=== PATIENT | male | born 1970 | race Caucasian/White ===

== ENCOUNTER → 2016-05-20 | Outpatient (CLI) | payer OTHER ==
[~2016-05-20] MED LIST: ACTIGALL300 MG PO; ALEVE220 M1 PO; ANTIPYRINE-BENZ10 ML OT; C-500500 M1 PO; CHOLESTEROL MEDICINE PO; CIPRO500 MG/5 M PO; FLAGYL500 MG PO; FOLBIC RF TABL1 EACH PO; IBUPROFEN 600600 M1 PO; LORTAB 10 MG-3473 ML PO; MOM; MULTIVITAM9 MG/15 M1; PEPTO-BISMOL262 M1; PHENERGAN 25 MG25 M1 PO; SIMVASTATIN20 MG PO; TUMS X-STR300 MG PO; VICODIN 5-5001 EACH PO; VITAMIN B-12500 MCG PO; VITAMINC500 PO; ZOCOR20 MG PO; [UNRECOGNIZED DRUG - CODE] PO
--- NOTE | ~2016-05-20 | S ---
[facility] [address] [place] [address] SURGICAL PATH RPT PROCEDURE Name: BONNIE BURDEN Room #: REG [facility]..#: [id number] Admission: 05/20/16 Date of : 74 Discharge: Report #: [id number] Path Case #: [id number] PATHOLOGY REPORT COLLECTION DATE: 05/20/2016 RECEIVED DATE: 05/20/2016 SUBMITTING PHYS: Dr. Serge Jolley OTHER PHYS: SPECIMEN(S) RECEIVED: A.5 cores, Lt neck mass * * * * * * * * * * * * FINAL DIAGNOSIS: Tissue designated as left neck mass, ultrasound-guided needle core biopsy: - SUSPICIOUS FOR PAPILLARY CARCINOMA. COMMENT: Examination shows papillary architecture, nuclear overlapping, and focal pseudoinclusions present along with areas suspicious for capsular invasion. The capsule (dense fibrous tissue) sampled shows abundant hemosiderin laden macrophages and areas of chronic inflammation along with irregularly shaped epithelial islands. Few cores show mixed macro- and microfollicular architecture along with chronic lymphocytic thyroiditis which may simply be due to sampling. Please note, sample represents a minute portion of a larger lesion and may not be junior sales representative. The current sample shows abundant variations from mixed macro- and microfollicular benign thyroid tissue to fibrous capsule associated with skeletal muscle and areas highly suspicious for malignancy. Clinical correlation is suggested. The concurrent cytology ([id number]) showed similar findings. Please see separate report for details. Co-review: Dr. Jarad Chavez. (IUV:csd; d/t: 05/21/2016) PATHOLOGIST: Anne Lynn M.D. REPORT ELECTRONICALLY SIGNED BY: Anne Lynn M.D. DATE/TIME: 05/21/2016 16:47 * * * * * * * * * * * * GROSS PATHOLOGY: The specimen is received in formalin, labeled "Bonnie Burden jeni bx neck" and additionally labeled "left neck mass" on the requisition. Received is a 1.8 x 0.4 x 0.2 cm aggregate of blood-tinged, norris, and rubbery soft tissue fragments. The specimen is entirely submitted in [address] [place] [address] SURGICAL PATH RPT PROCEDURE Name: TIAGOBONNIE Room #: REG CLTenisha Givens#: [id number] Admission: 05/20/16 Date of : 74 Discharge: Report #: [id number] Path Case #: [id number] cassette A1. (TTL; 05/20/2016) CLINICAL HISTORY: Neck mass/cyst INITIAL CPT CODE(S): A; 00871 Professional services performed by [facility] at [facility] [address] [place] [address] Technical services performed by [facility] at [address] [place] [address], [facility] [address] [address]. [facility] [address] [address] PHONE: [phone] DIRECTOR: Cam W. Collins, M.D. * * * END OF REPORT * * *
--- NOTE | ~2016-05-20 | CNG ---
[facility] [place] [address] [place] [address] CYTO-NONGYN REPORT PROCEDURE Name: BONNIE BURDEN Room #: REG [facility] Ziyad.Nils.#: [id number] Admission: 05/20/16 Date of : 74 Discharge: Report #: [id number] Path Case #: [id number] CYTOPATHOLOGY REPORT COLLECTION DATE: 05/20/2016 RECEIVED DATE: 05/20/2016 SUBMITTING PHYS: Dr. Serge Jolley OTHER PHYS: CLINICAL HISTORY: Neck mass/cyst. SPECIMEN(S) RECEIVED: A.Needle aspiration, Neck mass/cyst * * * * * * * * * * * * FINAL DIAGNOSIS: A. Tissue designated as neck mass/cyst, needle aspiration: SUSPICIOUS FOR MALIGNANCY; ATYPICAL CELLS WITH NUCLEAR CLEARING AND RARE INCLUSIONS. COMMENT: The aspirate findings are suspicious for a papillary thyroid carcinoma. The cytology material is hypocellular due to the fact that the specimen represents "cyst fluid". Please note material aspirated may not be digital sales representative. Correlate clinically and follow-up as indicated. The cyst material is saved in media for DNA analysis. It will be sent if requested. A message was sent to Dr. Jolley. The concurrent biopsy tissue [id number] showed findings suspicious for a papillary thyroid carcinoma. Please refer to a separate report for details. (IUV; 05/21/16) PATHOLOGIST: Anne Lynn M.D. REPORT ELECTRONICALLY SIGNED BY: Anne Lynn M.D. DATE/TIME: 05/21/2016 16:19 * * * * * * * * * * * * GROSS PATHOLOGY: A. Needle aspiration, Neck mass/cyst: The specimen is labeled "Bonnie Burden". Forty-five mL of cloudy brown fluid unfixed from the needle rinse is submitted and One ThinPrep slide and a cell block were prepared from this material. (clt 05.20.2016) INDUSTRIAL RELATIONS OFFICER(S): DAMARIS Bowers(ASCP)IAC INITIAL CPT CODE(S): A; 94931, [address] [address] CYTO-NONGYN REPORT PROCEDURE Name: BONNIE BURDEN Room #: REG [facility] Hamzah.#: [id number] Admission: 05/20/16 Date of : 74 Discharge: Report #: [id number] Path Case #: [id number] Professional services performed by [facility] at [address] , [place] [address] Technical services performed by [facility] at [address] [place] [address], [address], [place] [address]. PROCEDURE REPORT (Order Date: 05/25/2016 00:00) INTERPRETATION: The slides were marked for testing, and sent at the request of Dr. Serge Jolley. ThyraMir testing was performed by [employer] on the FNA. Please see SCANNED IMAGES under LABORATORY for separate report of results. (IUV:krystal; d/t: 06/17/2016) COMMENT: PATHOLOGIST: Anne Lynn M.D. REPORT ELECTRONICALLY SIGNED BY: Anne Lynn M.D. DATE/TIME: 06/17/2016 10:56 [facility] [address] [facility], [address] [place] [address] PHONE: [phone] DIRECTOR: Cam Guadalupe M.D. * * * END OF REPORT * * *
== END | disposition home or self-care (01) ==
LOC: ULTRA 08:46
DX: E04.1 Nontoxic single thyroid nodule (principal)

== ENCOUNTER 2016-07-27 05:17 | Day surgery (SDC) | payer OTHER ==
[~2016-07-27] VITALS: Ht 188 cm; Wt 126.6 kg
--- NOTE | ~2016-07-27 | O ---
[facility] [place] [address] [place] [address] OPERATIVE REPORT Name: BONNIE ORDOÑEZ Room #: 544-P [facility]#: [id number] Admission: 07/27/16 Attend Phys: Serge Jolley MD Discharge: Date of : 74 Report #: [id number] THIS REPORT FOR: //name// CC: FAM unknown Serge Jolley DATE OF SERVICE: 07/27/2016 PREOPERATIVE DIAGNOSIS: Thyroid mass. POSTOPERATIVE DIAGNOSIS: Large thyroid cyst. PROCEDURE: Thyroid isthmusectomy. SURGEON: Serge Jolley MD. SERVICE COUNSELOR: All Stiles MD, his presence was necessitated by need for adequate exposure and identification of important vital structures. ANESTHESIA: General endotracheal with a NIMS tube. FINDINGS: Large 6 cm fluid filled cyst was noted just deep to the strap muscles, anterior to the thyroid isthmus and the thyroid lobes. It appeared to be stalked off of the left side of the thyroid isthmus. TECHNIQUE: After obtaining consent, he was brought to the operating suite, appropriate time out was performed. General oral endotracheal anesthesia was obtained with a NIMS endotracheal tube. The appropriate ground and probe leads were then selected and appropriate thresholds were selected. It was found to be in working order at the beginning and end of the case. The next prepped and draped in usual sterile fashion, 6 mL of 1% Xylocaine 1:100,000 epinephrine was injected along the anticipated incision line about 6 cm in length due to the large size of the cyst. After appropriate prepping and draping of the patient, incision was made horizontally over the mass through skin subcutaneous tissue and fat through platysmus. Superior and inferior subplatysmal places were elevated gently. The mass was noted to split strap muscles and the midline raphae was identified and using a combination of a blunt dissection and the use of either bipolar cautery or the focus handpiece, we then divided the strap muscles in the medial to lateral fashion off the mass performing this mostly on the right side first to gain exposure and adequate depth down to the level of the trachea and then on the left side. In the midline, we continued our dissection down to trachea to where we could identify the trachea. At that point was noted that most of the mass was actually to the left of midline. We were then able to develop a plane along the trachea and by doing so rolling mass to the left, able to divide it off the trachea and the right thyroid lobe without difficulty. There was no adequate attachment to the right thyroid lobe. [address] [address] OPERATIVE REPORT Name: BONNIE ORDOÑEZ Room #: 544-P REG [facility]#: [id number] Admission: 07/27/16 Attend Phys: Serge Jolley MD Discharge: Date of : 74 Report #: [id number] At that point, we noted there was attachment inferiorly to the isthmus and we divided the isthmus in midline with the focus handpiece including the specimen, was then able to return more to the patient's left side. We were able to remove it from the surrounding strap muscles staying superior to the thyroid lobe and again was able to divide it off the isthmus on the left side. This essentially left both the right and the left lobes separate from each other, having taken the portion of the isthmus in midline. The specimen was delivered in toto. At that point, hemostasis was obtained with use of bipolar cautery, the focus handpiece or Bovie. Upon maintaining adequate hemostasis, the wound was then thoroughly irrigated with saline. Wound was inspected. Positive pressure ventilation was applied and no bleeding was noted. A large piece of Surgicel was placed over the area where it was removed from the surrounding strap muscles. Through separate stab incision, a 10-Japanese LUMA drain was placed and secured with a single suture through the skin. Strap muscles were then reapproximated in midline with 3-0 chromic suture followed by reapproximating the platysmal layer in a similar fashion. Skin was closed with a running 4-0 black subcuticular nylon suture. Mastisol, Steri-Strips and dressing were applied. He was then allowed to awaken from anesthesia, went to recovery room in stable condition. ESTIMATED BLOOD LOSS: Approximately 20 mL. <ELECTRONICALLY SIGNED> By: Serge Jolley MD 07/28/16 0812 1621 170 Serge Jolley MD /nt
--- NOTE | ~2016-07-27 | S ---
[facility] [address] [place] [address] SURGICAL PATH RPT PROCEDURE Name: BONNIE BURDEN Room #: DEP [facility] M.R.#: [id number] Admission: 07/27/16 Date of : 74 Discharge: 07/28/16 Report #: [id number] Path Case #: [id number] PATHOLOGY REPORT COLLECTION DATE: 07/27/2016 RECEIVED DATE: 07/28/2016 SUBMITTING PHYS: Dr. Serge Jolley OTHER PHYS: Dr. All Stiles SPECIMEN(S) RECEIVED: A.Midline thyroid mass * * * * * * * * * * * * FINAL DIAGNOSIS: "Midline thyroid mass," thryoid isthmusectomy: - PAPILLARY CARCINOMA, MEASURING 5.7 CM GROSSLY INCLUDING CYST AND 2.0 CM SOLID COMPONENT ON THE SLIDE, WITH FOCAL EXTRATHYROIDAL EXTENSION INTO THE PERITHYROIDAL ADIPOSE TISSUE; SURGICAL MARGINS APPEAR FREE OF TUMOR. (SEE COMMENT) - LYMPH NODE, PARTIALLY SAMPLED PERITHYROIDAL, WITH METASTATIC PAPILARY CARCINOMA. (05/02 NODE) SYNOPTIC CANCER STAGING REPORT Specimen Site: Thyroid gland structure Primary Tumor Site: Thyroid gland structure SPECIMEN Procedure: Partial excision (anything less than a lobectomy, including substernal excision) -Other: isthmusectomy Lymph Node Sampling: Other: incidental partially sampled perithyroidal TUMOR Histologic Type: Papillary carcinoma -Common Significant Variants: --Classical (usual, conventional) --Follicular variant, infiltrative Tumor Size: Greatest dimension (cm): 5.7 -Additional Dimension (cm): 2.0 Tumor Laterality: Isthmus Tumor Focality: Unifocal Tumor Extent Extrathyroidal Extension: Present -Extent: --Minimal Accessory Tumor Findings Angioinvasion (vascular invasion): Not identified Lymphatic Invasion: Cannot be determined: indefinite [facility] [address] [place] [address] SURGICAL PATH RPT PROCEDURE Name: BONNIE BURDEN Room #: [facility]..#: [id number] Admission: 07/27/16 Date of : 74 Discharge: 07/28/16 Report #: [id number] Path Case #: [id number] MARGINS Margins: Margins uninvolved by carcinoma -Distance of Invasive Carcinoma to Closest Margin: --Specify (mm): 0.5 LYMPH NODES Regional Lymph Nodes: -Number of Lymph Nodes Examined: --Specify number: 1 -Lymph Node Involvement: ---Number of Lymph Nodes Involved: ----Specify number: 1 ---Size of Largest Tumor Deposit: ----At least (mm): 3 ---Extranodal Extension: ----Not identified STAGE (PTNM) Primary Tumor (pT): pT3: Tumor more than 4 cm limited to thyroid or any tumor with minimal extrathyroid extension (e.g., extension to sternothyroid muscle or perithyroidal soft tissues) Regional Lymph Nodes (pN)#: pN1a: Metastases to Level (pretracheal, paratracheal and prelaryngeal / Delphian, perithyroidal) lymph nodes COMMENT Tumor measures 5.7 cm grossly including cyst and solid component measures 2.0 cm on the slide. COMMENT: Sections show fragments of thyroid with a large thyroid cyst. Adjacent thyroid tissue shows invasive thyroid papillary carcinoma with focal extension into the perithyroidal adipose tissue. Benign/uninvolved skeletal muscle is noted. A partially sampled perithyroidal lymph node shows involvement by papillary carcinoma. Lymphvascular space invasion is indefinite. The inked surgical margins are free of involvement by tumor. The patient has a history of "suspicious for malignancy; atypical cells with nuclear clearing and rare inclusions" from a previous fine needle aspiration ([id number]) and "suspicious for papillary carcinoma" from a left neck mass needle core biopsy ([id number]). Veterinary Technician Assistant slides of the current case are co-reviewed with Dr. Anne Lynn. The case is discussed with Dr. Serge Jolley on 07/29/16 at 5:00 PM. (CLW:; d/t: 07/29/16) PATHOLOGIST: Sherin Jose M.D. REPORT ELECTRONICALLY SIGNED BY: Sherin Jose M.D. DATE/TIME: 07/29/2016 17:07 * * * * * * * * * * * * [facility] [address] [place] [address] SURGICAL PATH RPT PROCEDURE Name: BONNIE BURDEN [id number] Admission: 07/27/16 Date of : 74 Discharge: 07/28/16 Report #: [id number] Path Case #: [id number] GROSS PATHOLOGY: The specimen is received in formalin labeled "Bonnie Burden midline thyroid mass". Received is a 71 g segment of pale norris to pink-lopez fluid-filled capsular tissue with a slight amount of attached light norris possible thyroid parenchyma measuring 5.9 x 5.1 x 4.6 cm in greatest dimensions. The surgical margin is inked. Sectioning reveals a large unilocular cystic structure measuring 5.7 x 4.7 x 4.3 cm in greatest dimensions filled with blood-tinged fluid. The cyst wall linings are pale norris and smooth in appearance. There is a slight amount of attached pink-norris soft tissue measuring 1.9 x 1.8 x 1.1 cm. Normal thyroid parenchyma is not grossly distinct. The specimen is submitted representatively in cassettes A1 through A5. (CAA; 07/28/2016) CLINICAL HISTORY: Thyroid cyst INITIAL CPT CODE(S): A; 33135 Professional services performed by [facility] at [place] [address], [place] [address] Technical services performed by [facility] at [address] [place] [address], [address], [place] [address]. [facility] [address] [address] PHONE: [phone] DIRECTOR: Cam Guadalupe M.D. * * * END OF REPORT * * *
--- NOTE | ~2016-07-27 | H ---
[facility] [address] [place] [address] HISTORY AND PHYSICAL Name: BONNIE ORDOÑEZ Room #: 150-1 [facility]..#: [id number] Admission: 07/27/16 Attend Phys: Serge Jolley MD Discharge: Date of : 74 Report #: [id number] THIS REPORT FOR: //name// CC: FAM unknown Serge Jolley DATE OF SERVICE: 07/27/2016 CHIEF COMPLAINT: Thyroid mass. HISTORY OF PRESENT ILLNESS: The patient is a 46-year-old gentleman originally presented in May of this year with a midline mass that have been present for several months nonpainful in nature and enlarged within the last several months prior to presentation. An ultrasound suggested this is a cystic mass, although original diagnosis thought this may be thyroglossal duct cyst. A CT scan of his neck was obtained and based on this, I recommended proceeding with an FNA. The FNA did demonstrated some atypical cells and was sent it off further for genetic testing; however, the genetic testing demonstrated this to a high probability being a benign lesion. It should be noted that upon removal of the fluid from the mass, the size of the mass essentially dissipated however, did recur somewhat quickly after aspiration was performed. I discussed with the patient by phone with the benign appearing FNA the option of either leaving the cyst in place and having aspirated as needed or that he could proceed forward to have surgical intervention done to remove the ensuing cyst and the mass. Surgical risks were discussed with him, which included but not limited to anesthesia, bleeding, infection, scarring, seroma hematoma formation, temporary or permanent injury to the vocal cord nerve. There were possibility of needing a tracheotomy. Temporary permanent hypercholesterolemia, need for further surgical intervention. All questions were answered as well as discussion of the option of just aspirating this on an as needed basis. Plan at this point will be for removal of thyroid mass under anesthesia. ALLERGIES TO MEDICATION: INCLUDE PENICILLIN. MEDICATIONS ON ADMISSION: Simvastatin 20 mg once a day, Ursodiol 300 mg capsule once a day. PAST MEDICAL AND SURGICAL HISTORY: Notable for previous gallbladder surgery. MEDICAL HISTORY: Notable for hypercholesterolemia. FAMILY HISTORY: Notable for cancer, diabetes, stroke, and heart disease. REVIEW OF SYSTEMS: Negative for any GI, , cardiovascular or pulmonary issues, should be noted the patient has limited site. [address] [address] HISTORY AND PHYSICAL Name: BONNIE ORDOÑEZ Room #: 150-1 [facility]..#: [id number] Admission: 07/27/16 Attend Phys: Serge Jolley MD Discharge: Date of : 74 Report #: [id number] PHYSICAL EXAMINATION: VITAL SIGNS: Height of 62 inches, weight of 280 pounds, blood pressure 119/84. HEENT: Reveals a rather prominent gentleman who appears his stated age. He sites were restricted. Ear exam is unremarkable has is the nares and oral cavity and oropharynx. NECK: Reveals a large 5 to 6 cm midline mass just that or slightly below both the thyroid prominent, below the hyoid bone. There is no lymphadenopathy noted. CHEST: Clear. CARDIOVASCULAR: Regular rate, regular rhythm. ASSESSMENT: History of thyroid cysts with small component related to the thyroid itself. Plan will be for removal of cyst and the surrounding thyroid tissue, which may or may not necessitate a total thyroidectomy. <ELECTRONICALLY SIGNED> By: Serge Jolley MD 07/27/16 1429 0758 [id number] Serge Jolley MD /nt
[2016-07-27 14:01] VITALS: BP 121/85
[2016-07-27 16:50] VITALS: BP 134/79
[2016-07-27 17:00] VITALS: BP 130/80
[2016-07-27 17:30] VITALS: BP 131/61
[2016-07-27 18:00] VITALS: BP 121/69
[2016-07-27 20:00] VITALS: BP 123/70
[2016-07-28] VITALS: BP 131/59
[2016-07-28 04:00] VITALS: BP 119/61
[2016-07-28 07:24] VITALS: BP 113/70
[2016-07-28 11:56] VITALS: BP 113/70
[2016-07-28 12:11] VITALS: BP 113/70
== END 2016-07-28 13:37 | disposition still patient (30) ==
LOC: 5S 05:17 → OR 05:17 → TBA 05:17 → OR 10:14 → 5S 17:27 → OR 07-28 13:37
DX: C73 Malignant neoplasm of thyroid gland (principal); E78.00 Pure hypercholesterolemia, unspecified; G47.30 Sleep apnea, unspecified; Z98.890 Other specified postprocedural states
CPT/HCPCS: 50010; 50101; 50331; 50386; 50417; 50455; 50942; 52220; 56524; 56526; 56528; 56638; 56805; 57006; 62110; 62900; 65006; 70005

== ENCOUNTER 2016-08-20 05:51 | Inpatient (IN) | payer OTHER ==
[~2016-08-20] VITALS: Ht 188 cm; Wt 122.5 kg
--- NOTE | ~2016-08-20 | S ---
[facility] [place] [address] [place] [address] SURGICAL PATH RPT PROCEDURE Name: BONNIE BURDEN Room #: 430-P [facility] M.R.#: [id number] Admission: 08/20/16 Date of : 74 Discharge: 08/21/16 Report #: [id number] Path Case #: [id number] PATHOLOGY REPORT COLLECTION DATE: 08/20/2016 RECEIVED DATE: 08/20/2016 SUBMITTING PHYS: Dr. Serge Jolley OTHER PHYS: Dr. All Stiles SPECIMEN(S) RECEIVED: A.Right lobe B.Left lobe * * * * * * * * * * * * FINAL DIAGNOSIS: A. Thyroid, right thyroid lobe, completion thyroidectomy: - Mild chronic lymphocytic thyroiditis along with nodular hyperplasia as well as dominant nodule formation. B. Thyroid, left thyroid lobe, completion thyroidectomy: - PAPILLARY CARCINOMA, CLASSICAL VARIANT, MEASURING 0.6 CM IN GREATEST DIMENSION (MICROCARCINOMA). - Margins of resection widely free of malignancy. B. Tissue designated as "left thyroid lobe": - 4 mm parathyroid gland showing no significant diagnostic abnormalities. SYNOPTIC CANCER STAGING REPORT Specimen Site: Thyroid gland structure Primary Tumor Site: Thyroid gland structure CLINICAL Clinical History: Other: isthmus resection with Papillary carcinoma SPECIMEN Procedure: Other: Completion thyroidectomy TUMOR Histologic Type: Papillary carcinoma -Common Significant Variants: --Classical (usual, conventional) Tumor Size: Greatest dimension (cm): 0.6 Tumor Laterality: Left lobe Isthmus Tumor Focality: Multifocal Tumor Extent Extrathyroidal Extension: Not identified Accessory Tumor Findings Angioinvasion (vascular invasion): Not identified Lymphatic Invasion: Not identified [facility] [address] [place] [address] SURGICAL PATH RPT PROCEDURE Name: BONNIE BURDEN Room #: 430-P [facility] IN M.R.#: [id number] Admission: 08/20/16 Date of : 74 Discharge: 08/21/16 Report #: [id number] Path Case #: [id number] Perineural Invasion: Not identified MARGINS Margins: Margins uninvolved by carcinoma -Distance of Invasive Carcinoma to Closest Margin: --Specify (mm): 3 LYMPH NODES Regional Lymph Nodes: No nodes submitted or found STAGE (PTNM) TNM Descriptors: m (multiple primary tumors) Primary Tumor (pT): pT1a: Tumor 1 cm or less in greatest dimension limited to the thyroid. Regional Lymph Nodes (pN)#: pNX: Regional lymph nodes cannot be assessed ADDITIONAL FINDINGS Additional Pathologic Findings: Thyroiditis (specify type): mild chronic lymphocytic thyroiditis Parathyroid gland(s) -Present --Number of Parathyroid Glands: ---1 --Location of Parathyroid Gland(s): ---Other: left side --Parathyroid Gland Features: ---Within normal limits COMMENT: The most recent isthmus lobectomy specimen [id number] showed a papillary thyroid carcinoma staged at pT3 pN1 pMx (please see separate report). The current completion thyroidectomy shows a 6 mm papillary thyroid carcinoma of classical type. Therefore the tumor is separately staged as a multifocal tumor and as a pT1a. (IUV:csd; d/t: 08/24/2016) PATHOLOGIST: Anne Lynn M.D. REPORT ELECTRONICALLY SIGNED BY: Anne Lynn M.D. DATE/TIME: 08/24/2016 15:25 * * * * * * * * * * * * GROSS PATHOLOGY: A. The specimen is received in formalin labeled "Bonnie Burden, right lobe". Received is a 13 g unoriented thyroid lobe measuring 4.7 x 2.8 x 2.2 cm in greatest dimensions. The capsule is slightly disrupted and displays a moderate amount of overlying adhesions. The specimen is inked black. Sectioning reveals multiple pale norris, partially encapsulated nodules ranging in size from 0.5 to 1.9 cm in maximum dimensions, some of which grossly abuts the inked margin. There is a slight amount of normal red-brown thyroid parenchyma present. Alternating sections are submitted in cassettes [place]1 [place] [address] SURGICAL PATH RPT PROCEDURE Name: BONNIE BURDEN Radha Room #: 430-P [facility] M.R.#: [id number] Admission: 08/20/16 Date of : 74 Discharge: 08/21/16 Report #: [id number] Path Case #: [id number] A7. B. The specimen is received in formalin labeled "Bonnie Burden, left lobe". Received is a 9 g unoriented thyroid lobe measuring 4.7 x 2.6 x 1.9 cm in greatest dimensions. The capsule is intact displaying a moderate amount of overlying adhesions. The specimen is inked blue. Sectioning reveals multiple pale norris to white-norris, unencapsulated nodules ranging in size from 0.1 to 0.5 cm in maximum dimensions. The remainder the specimen is comprised of normal red-brown thyroid parenchyma. Alternating sections are submitted in cassettes B1 through B6. (CAA; 08/23/2016) CLINICAL HISTORY: Thyroid nodule INITIAL CPT CODE(S): A; 97465 B; 14516, 69001 Professional services performed by [employer] at [facility] [address], [place] [address] Technical services performed by [employer] at [address] [place] [address], [address], [place] [address]. [facility] [address] [place] [address] PHONE: [phone] DIRECTOR: Cam Guadalupe M.D. * * * END OF REPORT * * *
--- NOTE | ~2016-08-20 | O ---
[facility] [place] [address] OPERATIVE REPORT Name: BONNIE ORDOÑEZ Room #: 430-P [facility] IN M.R.#: [id number] Admission: 08/20/16 Attend Phys: Serge Jolley MD Discharge: Date of : 74 Report #: [id number] THIS REPORT FOR: //name// CC: FAM unknown Serge Jolley DATE OF SERVICE: 08/20/2016 PREOPERATIVE DIAGNOSIS: Thyroid cancer. POSTOPERATIVE DIAGNOSIS: Thyroid cancer. PROCEDURE: Thyroidectomy. SURGEON: Serge Jolley MD CERTIFIED ORTHOTIST/PEDORTHIST: All Stiles MD. His assistance was integral and providing assistance in identifying and preserving vital structures as well as exposure during the case. ANESTHESIA: General oral endotracheal and NIMs tube. FINDINGS: Expected scarification was noted in the superficial portions of the neck. Both the right and left thyroid lobes were without any palpable masses and appeared to be normal in size. No visible lymphadenopathy was noted. There was a substantial amount of scarification right over the trachea in the midline as expected from previous surgery. Parathyroids were intact superiorly bilaterally at the end of the case. Both recurrent laryngeal nerves were identified and preserved during the case. TECHNIQUE: After obtaining consent, he was brought to the operating suite, appropriate timeout was performed. General oral endotracheal intubation was obtained with use of a NIMs tube. ____ just maintained throughout the case. The NIMs tube leads were applied to the ground and probe were applied to the chest. Appropriate intervals were selected for stimulation and the NIMs tube was found to be functioning. The neck was prepped and draped in the usual sterile fashion. A 5 mL 1% Xylocaine and 1:100,000 epinephrine was injected along the previous incision line. Reexcision through the original incision line was performed, carried down through the skin and subcutaneous tissue and the platysma. Dense scarification was encountered with hemostasis maintained with the use of bipolar or Bovie cautery. After going through the platysma layer, identified the midline by palpation, was able to raise superior and inferior subplatysmal planes. This essentially scarred down from previous dissection from his original case. This exposed a rather scarified appearance to the musculature over the trachea. With [facility] [address] [place] [address] OPERATIVE REPORT Name: BONNIE ORDOÑEZ Room #: 430-P [facility] IN M.R.#: [id number] Admission: 08/20/16 Attend Phys: Serge Jolley MD Discharge: Date of : 74 Report #: [id number] some technical dissection, I was able to identify the midline and divide muscles in midline until I was able to identify the trachea. I was then able to with, fine dissection, lift the strap muscles off the right lobe and identify the lateral border. I was then able to clean out from the medial and lateral aspect the investing fascia and strap muscles from the right thyroid lobe until we could see the inferior and superior poles in lateral edge. Continued to dissect laterally rolling the gland medially with the use of stay sutures to help pull the thyroid lobe up into view. Inferior pole vessels were taken down with the use of either bipolar cautery or the use of a focus handpiece. Superior vessels were then identified and divided with the same handpiece. Medium sized clips were used on the superior pole vessels. This allowed us to roll it even more medially. I was then able to identify and preserve the superior parathyroid gland on this side. At that point, we identified the recurrent laryngeal nerve and followed it up towards its insertion to the cricoid space. This was preserved into the gland, continued to be rolled more medially exposing various ligament and taking this down off the trachea delivering the entire right lobe as one specimen. It should be noted that we did not identify or see the inferior parathyroid gland on this side. Inspection of the right thyroid lobe wound showed an intact recurrent laryngeal nerve with an intact and viable superior parathyroid. Attention was then turned to the left side of the neck where again with some technical dissection I was able to identify the plane between the straps muscles, which had scarred against the medial aspect thyroid lobe on the left side, actually turned laterally and found a fresh plane of dissection on the lateral edge of the right lobe, was able to dissect this down and roll the gland more medially. Returning to the inferior pole area, we took the inferior pole vessels down and I was finally able to identify the recurrent laryngeal nerve near the tracheoesophageal groove. We followed this up to the cricothyroid space as well as inferiorly, then took the superior pole vessels down with the focus handpiece. Continued rolling in the gland medially keeping the recurrent laryngeal nerve in view the entire time and avoiding it during dissection, taking Solano's ligament down with bipolar cautery and the use of the focus handpiece. This specimen was also delivered in toto and on this side, we were able to identify and preserve the superior parathyroid, but again did not identify the inferior parathyroid. At the end of the case, hemostasis was maintained with the use of either bipolar cautery or small clips avoiding stimulation and cauterization near the recurrent laryngeal nerves on both sides. Copious irrigation was used to clean the wounds on both sides. There was no residual blood left in the field. Positive pressure ventilation was applied by Anesthesia and all the surgical sites were inspected and found to be hemostatically dry. A single piece of 2 x 3 Surgicel was cut in half and placed over the recurrent laryngeal nerves bilaterally. Through a separate stab incision, a 10 [place] Mg drain was placed and secured with a 2-0 silk suture. The strap muscles were then reapproximated as best they could be with either horizontal or simple interrupted 3-0 chromic. Closed the platysmal layer in a [facility] [address] [place] [address] OPERATIVE REPORT Name: BONNIE ORDOÑEZ Room #: 430-P [facility] IN [facility]#: [id number] Admission: 08/20/16 Attend Phys: Serge Jolley MD Discharge: Date of : 74 Report #: [id number] similar fashion. Skin was closed with a running 4-0 black nylon followed by Mastisol, Steri-Strips, Telfa and tape. He was then returned to anesthesia, awakened and taken to recovery room in stable condition. ESTIMATED BLOOD LOSS: 75 mL. <ELECTRONICALLY SIGNED> By: Serge Jolley MD 08/21/16 0816 1043 1543 Serge Jolley MD /nt
--- NOTE | ~2016-08-20 | H ---
[facility] [place] [address] [place] [address] HISTORY AND PHYSICAL Name: BONNIE ORDOÑEZ Room #: 430-P [facility] IN M.R.#: [id number] Admission: 08/20/16 Attend Phys: Serge Jolley MD Discharge: 08/21/16 Date of : 74 Report #: [id number] THIS REPORT FOR: //name// For History and Physical, please see office documentation/handwritten note in the patient's medical record. By: 0000 1131 Serge Jolley MD /
[~2016-08-20 05:51] MED LIST changes: +NORCO 5-325 TA1 EACH PO
[2016-08-20 07:45] VITALS: BP 124/71
[2016-08-20 13:18] VITALS: BP 132/83
[2016-08-20 15:14] VITALS: BP 137/80
[2016-08-20 20:00] VITALS: BP 121/78
[2016-08-21 04:00] VITALS: BP 127/85
[2016-08-21 08:32] VITALS: BP 116/76
[2016-08-21 09:41] VITALS: BP 127/85
== END 2016-08-21 14:45 | disposition home health service (06) | DRG 627 ==
LOC: OR 05:51 → TBA 05:51 → OR 12:51 → 4E 12:51 → OR 15:36 → 4E 08-21 14:45
PROC: 0GBH0ZZ Excision of Right Thyroid Gland Lobe, Open Approach (ICD-10-PCS; principal; 2016-08-20)
PROC: 0GBG0ZZ Excision of Left Thyroid Gland Lobe, Open Approach (ICD-10-PCS; principal; 2016-08-20)
DX: C73 Malignant neoplasm of thyroid gland (principal); Z88.0 Allergy status to penicillin
CPT/HCPCS: 10783; 50010; 50101; 50331; 50386; 50417; 50942; 52220; 52225; 56524; 56526; 56528; 56760; 57006; 62110; 62900; 64031; 65006; 70005

== ENCOUNTER 2016-09-24 05:35 | Outpatient (CLI) | payer OTHER ==
[~2016-09-24] VITALS: Ht 188 cm; Wt 122.0 kg
--- NOTE | ~2016-09-24 | P ---
[facility] [place] [address] [place] [address] PROCEDURE REPORT Name: BONNIE ORDOÑEZ Room #: 150-3 [facility].#: [id number] Admission: 09/24/16 Attend Phys: Bonnie Camargo MD Discharge: Date of : 74 Report #: [id number] THIS REPORT FOR: //name// CC: FAM unknown Janet Mendoza MD OUTPATIENT ENDOSCOPIC RETROGRADE CHOLANGIOPANCREATOGRAPHY REPORT BRIEF HISTORY: The patient is a 46-year-old male well known to me who has choledocholithiasis. He has had several ERCPs with the last one in November of last year. At that time, we crushed the stones and removed the stones and stone fragments. Part of the difficulty is a very large and dilated common bile duct, and we had concerns that there were remaining stones in the duct, and a stent was placed. The patient now presenting for followup ERCP and stent removal. PREOPERATIVE DIAGNOSIS: Choledocholithiasis. POSTOPERATIVE DIAGNOSES: 1. Choledocholithiasis. 2. Markedly dilated extrahepatic biliary tree. MEDICATIONS: Intubation general anesthesia. SPECIMEN: Multiple stones removed from duct and left in duodenum. ESTIMATED BLOOD LOSS: None. PROCEDURE: ERCP with stent removal and stone removal. COMPLICATIONS: None. FINDINGS: Prior to the procedure, the procedure of ERCP and stent removal, the stone extraction was discussed with the patient and his mother. He indicates he understands and desire that we proceed. DESCRIPTION OF PROCEDURE: The patient was taken to the invasive radiology suite and was placed under anesthesia and intubated. He was subsequently placed in the prone position. Subsequently, a Fuji side-viewing endoscope was inserted in the cervical esophagus, advanced to the esophagus into the stomach. It is noted the patient has had a previous gastric sleeve surgery. The pylorus is unremarkable. The scope was advanced across the pylorus and duodenum. We were then able to visualize the papilla, and he has had a previous sphincterotomy, and a pigtail catheter was exiting from the papilla. This was grasped with a polypectomy snare and pulled out. This stent was inspected, and the entire stent was removed from the biliary tree. We reinserted the scope and directly [facility] [address] [place] [address] PROCEDURE REPORT Name: BONNIE ORDOÑEZ Room #: 150-3 [facility]#: [id number] Admission: 09/24/16 Attend Phys: Bonnie Camargo MD Discharge: Date of : 74 Report #: [id number] cannulated the common bile duct. Injection of contrast revealed once again a dilated duct. Due to the dilated duct and even though half-strength contrast was used, it was fairly dense. We were able to see what appeared to be at least 3 filling defects in the distal duct and ranged about 6-8 mm. We then did an exchange and inserted a 2 cm basket into the duct. It was dragged on multiple occasions. On the first pass, several soft friable cholesterol stones came out. Filling defects remain, and with additional passes, 2 cholesterol stones were brought out of the duct. We then dragged the duct multiple times with the basket; no additional filling defects could be identified or stones removed. We then inserted a balloon catheter and dragged the duct with the balloon catheter. We rotated the camera at different angles, no additional filling defects were seen. The duct appeared to be draining well. Obvious filling defects were not seen. The scope was withdrawn. The patient tolerated the procedure well. CONDITION OF THE PATIENT UPON DISCHARGE: Following procedure, the patient was taken to recovery in good position. Instructions to the patient and family at the time of discharge. The biliary tree was cleared of stones. PLAN: We will follow up with liver function studies at about a month or so. He should return to see me on an as-needed basis. By: [id number] Bonnie Camargo MD /nt
[~2016-09-24 05:35] MED LIST changes: +LEVOTHYROXINE 0.1 MG PO
== END 2016-09-24 14:22 | disposition home or self-care (01) ==
LOC: GI 05:35 → TBA 05:35 → GI 11:33
DX: K80.50 Calculus of bile duct without cholangitis or cholecystitis without obstruction (principal); G47.30 Sleep apnea, unspecified; E78.00 Pure hypercholesterolemia, unspecified; Z85.850 Personal history of malignant neoplasm of thyroid; Z98.84 Bariatric surgery status
CPT/HCPCS: 50850; 62110; 62900; 70005

== ENCOUNTER 2017-01-11 23:54 | Emergency (ER) | payer OTHER ==
[~2017-01-11] VITALS: Ht 188 cm; Wt 125.7 kg
== END 2017-01-12 02:18 | disposition home or self-care (01) ==
LOC: ER 23:54
DX: H61.21 Impacted cerumen, right ear (principal); G47.30 Sleep apnea, unspecified; E78.00 Pure hypercholesterolemia, unspecified; Z85.850 Personal history of malignant neoplasm of thyroid; Z90.49 Acquired absence of other specified parts of digestive tract; Z88.0 Allergy status to penicillin

== ENCOUNTER → 2017-07-11 | Outpatient (CLI) | payer OTHER ==
[~2017-07-11] MED LIST changes: +ASPIR 8181 MG PO; +EAR SYSTEM15 ML OTIC; +LEVOTHYROXINE500 MCG; +MACROBID 100 M100 M1 PO; +MACROBID 100 M100 M2 PO; +MIRALAX17 GM PO; +NAPROSYN500 MG PO; +SIMVASTATIN40 MG PO; +SYNTHROID125 MC1 PO; +SYNTHROID150 MCG PO; +TRAMADOL 50 MG50 MG PO; +ULTRAM 50MG TAB50 MG PO; +VITAMIN D350000 UNIT PO
--- NOTE | ~2017-07-11 | 2DMMODE ---
[facility] [place] [address] 2 D/M-MODE ECHOCARDIOGRAM Name: BONNIE ORDOÑEZ Room #: REG [facility]#: [id number] Admission: 07/11/17 Attend Phys: Ney Currie Discharge: Date of : 74 Date of Service: 07/11/17 1302 Report #: [id number] THIS REPORT FOR: //name// APPROVED REPORT Study performed: 07/11/2017 09:07:58 EXAM: Comprehensive 2D, Doppler, and color-flow Echocardiogram Patient Location: Out-Patient Status: routine BSA: 2.51 HR: 67 bpm BP: 123/78 mmHg Rhythm: NSR Other Information Study Quality: Adequate Indications Palpitations 2D Dimensions RVDd: 41.71 mm LVEF(%): 55.46 (>50%) IVSd: 10.76 (7-11mm) LVOT Diam: 21.74 (18-24mm) LVDd: 53.79 mm PWd: 10.35 (7-11mm) Ascending Ao: 33.16 (22-36mm) LVDs: 38.11 (25-40mm) Aortic Root: 36.26 mm Rust's LVEF: 55.46 % Volumes Left Atrial Volume (Systole) Single Plane 4CH: 45.34 mL Single Plane 2CH: 44.60 mL LA ESV Index: 19.00 mL/m2 Aortic Valve AoV Peak Steve.: 1.45 m/s AO Peak Gr.: 8.45 mmHg LVOT Max P.66 mmHg LVOT Max V: 1.19 m/s ELIZA Vmax: 3.04 cm2 Mitral Valve E/A Ratio: 1.5 MV Decel. Time: 181.35 ms [facility] [address] [address] [place] [address] 2 D/M-MODE ECHOCARDIOGRAM Name: TIAGOBONNIE RAMOS Room #: [facility] Tosha#: [id number] Admission: 07/11/17 Attend Phys: Ney Currie Discharge: Date of : 74 Date of Service: 07/11/17 1302 Report #: [id number] E Max Steve.: 0.76 m/s MV A Steve.: 0.51 m/s MV PHT: 52.59 ms IVRT: 72.66 ms Pulmonary Valve PV Peak Steve.: 1.14 m/s PV Peak Gr.: 5.23 mmHg Pulmonary Vein P Vein S: 0.44 m/s P Vein A: 0.27 m/s P Vein D: 0.60 m/s P Vein A Dur.: 96.9 msec P Vein S/D Ratio: 0.73 Tricuspid Valve TR Peak Steve.: 2.06 m/s RAP Estimate: 5.00 mmHg TR Peak Gr.: 17.03 mmHg PA Pressure: 22.00 mmHg Left Ventricle The left ventricle is normal size. There is normal LV segmental wall motion. There is normal left ventricular wall thickness. Left ventricular systolic function is normal. LVEF is 55%. The left ventricular diastolic function is normal. Right Ventricle The right ventricle is normal size. The right ventricular systolic function is normal. Atria The left atrium size is normal. The right atrium size is normal. Aortic Valve The aortic valve is normal in structure. No aortic regurgitation is present. There is no aortic valvular stenosis. Mitral Valve The mitral valve is normal in structure. Trace mitral regurgitation. No evidence of mitral valve stenosis. Tricuspid Valve The tricuspid valve is normal in structure. Trace tricuspid regurgitation. Estimated PAP is 20-25mmHg. Pulmonic Valve The pulmonary valve is normal in structure. There is no pulmonic [address] [address] 2 D/M-MODE ECHOCARDIOGRAM Name: BONNIE ORDOÑEZ Room #: REG CL Juan Manuel#: [id number] Admission: 07/11/17 Attend Phys: [facility] Dis[facility]: Date of : 74 Date of Service: 07/11/17 1302 Report #: [id number] valvular regurgitation. Great Vessels The aortic root is normal in size. The ascending aorta is normal in size. IVC is normal in size and collapses with >50% inspiration Pericardium There is no pericardial effusion. <Conclusion> Left ventricular systolic function is normal. There is normal LV segmental wall motion. LVEF 55%. Normal diastolic function The aortic valve is normal in structure. No aortic regurgitation or stenosis The mitral valve is normal in structure. Trace mitral regurgitation. Trace tricuspid regurgitation. Estimated pulmonary artery pressure of 20-25mmHg. There is no pericardial effusion. <ELECTRONICALLY SIGNED> By: Michael Reyes MD, FACC 07/11/17 1302 130 1302 Michael Reyes MD, FACC /INF
== END ==
LOC: CV 07:10
DX: R00.2 Palpitations (principal); Z88.0 Allergy status to penicillin

== ENCOUNTER 2017-09-13 00:51 | Emergency (ER) | payer OTHER ==
[~2017-09-13] VITALS: Ht 188 cm; Wt 124.7 kg
[~2017-09-13 00:51] MED LIST changes: -ASPIR 8181 MG PO; -EAR SYSTEM15 ML OTIC; -LEVOTHYROXINE500 MCG; -MACROBID 100 M100 M1 PO; -MACROBID 100 M100 M2 PO; -MIRALAX17 GM PO; -NAPROSYN500 MG PO; -SIMVASTATIN40 MG PO; -SYNTHROID125 MC1 PO; -SYNTHROID150 MCG PO; -TRAMADOL 50 MG50 MG PO; -ULTRAM 50MG TAB50 MG PO; -VITAMIN D350000 UNIT PO
[2017-09-13] MEDS ORDERED: IBUPROFEN 600600 M1 PO (01:11)
[2017-09-13] MEDS ORDERED: ULTRAM 50MG TAB50 MG PO (01:11)
[2017-09-13] MEDS ORDERED: EAR SYSTEM15 ML OTIC (01:11)
== END 2017-09-13 01:34 | disposition home or self-care (01) ==
LOC: ER 00:51
DX: M53.3 Sacrococcygeal disorders, not elsewhere classified (principal); H61.22 Impacted cerumen, left ear; Z85.850 Personal history of malignant neoplasm of thyroid; Z90.89 Acquired absence of other organs; Z88.0 Allergy status to penicillin

== ENCOUNTER → 2017-10-19 | Outpatient (CLI) | payer OTHER ==
[~2017-10-19] VITALS: Ht 188 cm; Wt 125.1 kg
[~2017-10-19] MED LIST changes: +EAR SYSTEM15 ML OTIC; +LEVOTHYROXINE500 MCG; +SIMVASTATIN40 MG PO; +SYNTHROID150 MCG PO; +TRAMADOL 50 MG50 MG PO; +ULTRAM 50MG TAB50 MG PO
--- NOTE | ~2017-10-19 | HPC ---
[facility] [address] [place] [address] PAIN MANAGEMENT CONSULTATION Name: BONNIE ORDOÑEZ Room #: REG Tenisha Tosha#: [id number] Admission: 10/19/17 Attend Phys: Tobias Montenegro MD Discharge: Date of : 74 Report #: [id number] THIS REPORT FOR: //name// CC: FAM jenny Montenegro DATE OF SERVICE: 10/19/2017 CHIEF COMPLAINT: Pain in the buttocks area after falling on my tailbone. HISTORY OF PRESENT ILLNESS: The patient is a 47-year-old gentleman who is blind. States that he has been experiencing pain and discomfort in the area of his tailbone. The patient states that he fell about a year and a half ago, he landed on his tailbone. It was about a 2 foot bridge of which he fell. He has been having pain and discomfort, which has been problematic since that time. He notes that the pain bothers him and is quite problematic, impacts activities of daily living. It impacts his ability to sleep and rest. He has not fallen within the last 3 months. He has tried Tylenol, but has not noticed any significant long-term benefit from this. He has been referred to the pain clinic for evaluation and treatment. He does note some time that the pain can be problematic in both of his legs. Describes as a constant, shooting, throbbing pain. Rates it as a 10/10 at this juncture. He has not had surgery for this discomfort. He has not had back surgery. ALLERGIES: PENICILLIN. CURRENT MEDICATIONS: Vitamin B12, 250 mg, simvastatin 20 mg, ursodiol 300, cyanocobalamin ER 1000 mg daily. Medications discontinued in the past include simvastatin 20 mg. 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 PAST SURGICAL HISTORY: Cholecystectomy in 2012, vasectomy in 1997, right rotator cuff tear, cortisone injection in 2011, gastric sleeve, loss 460 pounds, stent placement bile duct for gallstones, thyroid isthmusectomy 07/27/2016, thyroidectomy 08/20/2016. SOCIAL HISTORY: He is disabled. REVIEW OF SYSTEMS: Questionnaire 12-point review indicates generally healthy decreased appetite since gastric sleeve, headaches due to stress, dry skin [address] [address] PAIN MANAGEMENT CONSULTATION Name: BONNIE ORDOÑEZ Room #: REG [facility]#: [id number] Admission: 10/19/17 Attend Phys: Tobias Montenegro MD Discharge: Date of : 74 Report #: [id number] recurrent headaches due to stress, nervousness, and thyroid cancer. LABORATORY DATA: No laboratory values were available at the time of our interview. PAIN CLINIC ASSESSMENT: 1. Osteoarthritis. The patient is not being treated for osteoarthritis. 2. Height 6 feet 2 inches, weight 275 pounds. BMI is 35.4. 3. Vital signs: Blood pressure 110/73, pulse 57, and respiratory rate 14, room air saturation 98%. 4. Pain intensity 10. 5. Fall risk. The patient has not fallen in the last 3 months. He does walk with a cane or with a stick, white stick/red. 6. The patient is not on blood thinner. 7. History of hypertension. The patient is not being treated for hypertension. 8. Opioid therapy greater than 6 weeks. The patient is not on opioid medication. 9. Risk assessment tool 0-3 low for use of opioids. 10. Functional assessment tool 67 indicating significant problems with activities of daily living because of his pain and discomfort. 11. Recreational drug use, never used drugs. 12. Smoking. The patient has never smoked tobacco. 13. Alcohol: The patient denies use of alcoholic beverages. PHYSICAL EXAMINATION: GENERAL: The patient is a well-developed, somewhat obese white male. He is alert and oriented x 3. Affect is appropriate. HEAD, EYES, EARS, NOSE, AND THROAT: Normocephalic, atraumatic. The patient is blind. Hearing within normal limits. Mucous membranes are moist. NECK: Without adenopathy. HEART: Regular rate. ABDOMEN: Protuberant. LUNGS: Generally clear to auscultation without rales or crackles. EXTREMITIES: Upper motor strength is judged to be 5/5 for the major muscle groups with symmetry without neurological deficit, lower extremity judged to be 5/5 muscle strength. MUSCULOSKELETAL: Without significant scoliosis, kyphosis or lordosis. The patient has pain and discomfort to palpation in the area of coccyx. Down at the end of the coccyx pressure in this area reproduces a considerable amount of patient's pain and discomfort. States that he has some pain radiating around the left anterior thigh. No significant pain in the right anterior thigh muscle. The patient has some pain with palpation in the sciatic outflow tract and down the posterior portion of his thigh. Sylvester's sign was negative. Palpation in the coccyx reproduces the patient's pain and discomfort and causes the patient to phonate secondary to the discomfort. [facility] [address] [place] [address] PAIN MANAGEMENT CONSULTATION Name: BONNIE ORDOÑEZ Room #: REG [facility]#: [id number] Admission: 10/19/17 Attend Phys: Tobias Montenegro MD Discharge: Date of : 74 Report #: [id number] IMPRESSION: 1. Lower back and tailbone pain status post fall about a year and a half ago. 2. Diabetes mellitus. 3. Obesity -- status post gastric sleeve. 4. History of sleep apnea, does not use a machine. 5. Hypercholesterolemia. 6. History of thyroid cancer. 7. History of right rotator cuff tear. RECOMMENDATIONS: We discussed treatment options with the patient. Risks and benefits of a caudal injection in the area of the coccyx was discussed. Possible complications which could include infection, worsening of pain, no improvement in pain were discussed. At this point, the patient continues to have pain and discomfort and agrees to proceed with the caudal injection. PROCEDURE NOTE: The patient was assisted in the procedure room. He was helped off onto the procedure table. His back was sterilely washed with a Betadine solution in the area of coccyx. This was allowed to dry. A second washing with Betadine and was allowed to dry. Palpation in the area of the coccyx reproduced the patient's pain. He noted tenderness in the area of coccyx. The patient's coccyx appears to be somewhat curved forward. There was no evidence of skin breakdown. Imaging using fluoroscopy anterior, posterior as well as lateral were conducted. Palpation in this area reproduced discomfort with a 25-gauge needle. This area was advanced into the coccyx area. A total of 8 mL of 0.5% bupivacaine and 40 and 60 mg of triamcinolone was injected. The patient tolerated the procedure well. He was then taken by chair to the recovery area where he remained for an appropriate amount of time. The patient's pain decreased to 3 down from 10. He will call the pain clinic or seek medical attention should he note some increasing discomfort in the coccyx area. He notes some feelings of fever, chills or notes any neurological changes. He will seek medical attention. We would like to thank you for letting us to participate in his care. We hope he continues to improve. <ELECTRONICALLY SIGNED> By: Tobias Montenegro MD 10/20/17 0936 1439 1716 Tobias Montenegro MD /[facility]
[2017-10-19 09:38] VITALS: BP 110/73
== END | disposition home or self-care (01) ==
LOC: PAIN 06:48
DX: M54.16 Radiculopathy, lumbar region (principal); G89.29 Other chronic pain; E11.9 Type 2 diabetes mellitus without complications; E78.00 Pure hypercholesterolemia, unspecified; E66.09 Other obesity due to excess calories; Z98.890 Other specified postprocedural states; Z85.850 Personal history of malignant neoplasm of thyroid; Z87.828 Personal history of other (healed) physical injury and trauma; Z79.899 Other long term (current) drug therapy; Z90.49 Acquired absence of other specified parts of digestive tract; Z98.52 Vasectomy status; Z88.0 Allergy status to penicillin; Z68.35 Body mass index [BMI] 35.0-35.9, adult

== ENCOUNTER → 2017-11-14 | Outpatient (CLI) | payer OTHER | LOC: CAT 11-09 13:37 → RAD 09:29 → CAT 10:21 | DX: M41.84 Other forms of scoliosis, thoracic region (principal); R13.10 Dysphagia, unspecified ==

== ENCOUNTER 2017-12-24 23:27 | Emergency (ER) | payer OTHER ==
[~2017-12-24] VITALS: Ht 188 cm; Wt 119.3 kg
[2017-12-24 23:52] LABS: ABSOLUTE NEUTROPHILS 2.9 thou/uL (1.4-8.2); BASOPHILS 0.7 % (0.0-2.0); EOSINOPHILS 1.5 % (0.0-3.0); HEMATOCRIT 42.8 % (42.0-52.0); HEMOGLOBIN 14.4 gm/dL (14.0-18.0); LYMPHOCYTES 37.2 % (24.0-44.0); MCH 30.2 pg (26.0-34.0); MCHC 33.5 g/dL (28.0-37.0); MCV 90.2 fL (80.0-100.0); MONOCYTES 9.2 % (1.0-8.0); PLATELET COUNT 116 thou/uL (150-400); POLYS 51.4 % (36.0-66.0); RBC 4.75 mil/uL (4.50-6.00); RDW 13.9 % (10.5-14.5); WBC 5.6 thou/uL (4.0-11.0)
[2017-12-24 23:58] LABS: CALCIUM 8.9 mg/dL (8.5-10.1); CREATININE 1.3 mg/dL (0.7-1.3); POTASSIUM 3.7 mmol/L (3.5-5.1)
[2017-12-25 00:04] LABS: ALBUMIN 3.5 g/dL (3.4-5.0); TOTAL BILIRUBIN 0.5 mg/dL (<0.1-1.0); TOTAL PROTEIN 6.9 g/dL (6.4-8.2)
[2017-12-26] MEDS ORDERED: MIRALAX17 GM PO (20:15)
== END 2017-12-25 02:09 | disposition home or self-care (01) ==
LOC: ER 23:27
PROVIDERS: Emergency Medicine
DX: N28.1 Cyst of kidney, acquired (principal); R10.13 Epigastric pain; Z88.0 Allergy status to penicillin; Z90.49 Acquired absence of other specified parts of digestive tract

== ENCOUNTER 2018-01-23 12:39 | Emergency (ER) | payer OTHER ==
[~2018-01-23] VITALS: Ht 190.5 cm; Wt 120.2 kg
[~2018-01-23 12:39] MED LIST changes: +MIRALAX17 GM PO
[2018-01-23 13:02] LABS: ABSOLUTE NEUTROPHILS 2.5 thou/uL (1.4-8.2); BASOPHILS 1.9 % (0.0-2.0); EOSINOPHILS 1.5 % (0.0-3.0); HEMATOCRIT 44.2 % (42.0-52.0); HEMOGLOBIN 14.8 gm/dL (14.0-18.0); LYMPHOCYTES 29.4 % (24.0-44.0); MCH 30.3 pg (26.0-34.0); MCHC 33.6 g/dL (28.0-37.0); MCV 90.3 fL (80.0-100.0); MONOCYTES 9.7 % (1.0-8.0); PLATELET COUNT 115 thou/uL (150-400); POLYS 57.5 % (36.0-66.0); WBC 4.4 thou/uL (4.0-11.0)
[2018-01-23 13:08] LABS: CALCIUM 9.6 mg/dL (8.5-10.1); CREATININE 1.1 mg/dL (0.7-1.3); POTASSIUM 4.1 mmol/L (3.5-5.1)
[2018-01-23 13:14] LABS: ALBUMIN 3.8 g/dL (3.4-5.0); TOTAL BILIRUBIN 0.6 mg/dL (<0.1-1.0); TOTAL PROTEIN 7.9 g/dL (6.4-8.2)
[2018-01-23 13:49] LABS: URINE BILIRUBIN NEGATIVE (Negative); URINE BLOOD NEGATIVE (Negative); URINE CLARITY SL CLOUDY; URINE COLOR YELLOW; URINE GLUCOSE-RANDOM* NEGATIVE (Negative); URINE KETONES NEGATIVE (Negative); URINE NITRITE-REFLEX NEGATIVE (Negative); URINE PROTEIN (DIPSTICK) NEGATIVE (Negative); URINE SPECIFIC GRAVITY 1.015 (1.005-1.035)
[2018-01-23 13:51] LABS: URINE LEUKOCYTES-REFLEX TRACE (Negative)
[2018-01-23 14:14] LABS: BACTERIA 1-9 Few /HPF (None Seen); CASTS None Seen /LPF (None Seen); CRYSTALS None Seen /LPF (None Seen); SQUAMOUS 4-10 Moderate /LPF (0-3); URINE RBC 0-2 Rare /HPF (0-2); URINE WBC 6-15 Few /HPF (0-5)
[2018-01-23] MEDS ORDERED: NAPROSYN500 MG PO (14:20)
[2018-01-23] MEDS ORDERED: MACROBID 100 M100 M1 PO (14:20)
[2018-01-26] MEDS ORDERED: SYNTHROID125 MC1 PO (09:28)
[2018-01-26] MEDS ORDERED: ASPIR 8181 MG PO (09:29)
[2018-01-26] MEDS ORDERED: MIRALAX17 GM PO (09:29)
[2018-01-26] MEDS ORDERED: VITAMIN D350000 UNIT PO (09:33)
[2018-01-26] MEDS ORDERED: MACROBID 100 M100 M2 PO (10:04)
== END 2018-01-23 15:11 | disposition home or self-care (01) ==
LOC: ER 12:39
PROVIDERS: Nurse Practitioner Family
DX: N39.0 Urinary tract infection, site not specified (principal); Z88.0 Allergy status to penicillin; Z90.49 Acquired absence of other specified parts of digestive tract

== ENCOUNTER → 2018-01-30 | Outpatient (CLI) | payer OTHER ==
[~2018-01-30] VITALS: Ht 188 cm; Wt 118.4 kg
[~2018-01-30] MED LIST changes: +ASPIR 8181 MG PO; +MACROBID 100 M100 M1 PO; +MACROBID 100 M100 M2 PO; +NAPROSYN500 MG PO; +SYNTHROID125 MC1 PO; +VITAMIN D350000 UNIT PO
== END | disposition home or self-care (01) ==
LOC: GI 12:22
DX: Z12.11 Encounter for screening for malignant neoplasm of colon (principal); K64.8 Other hemorrhoids; E78.00 Pure hypercholesterolemia, unspecified; G47.33 Obstructive sleep apnea (adult) (pediatric); Z87.19 Personal history of other diseases of the digestive system; Z80.0 Family history of malignant neoplasm of digestive organs; Z85.850 Personal history of malignant neoplasm of thyroid; Z90.3 Acquired absence of stomach [part of]; Z90.49 Acquired absence of other specified parts of digestive tract; Z79.899 Other long term (current) drug therapy; Z98.890 Other specified postprocedural states
CPT/HCPCS: 62110; 62900

== ENCOUNTER → 2018-03-27 | Outpatient (CLI) | payer OTHER ==
[~2018-03-27] VITALS: Ht 188 cm; Wt 118.4 kg
--- NOTE | ~2018-03-27 | PATH ---
[facility] [address] [place] [address] PATHOLOGY RPT PROCEDURE Name: BONNIE BURDEN Room #: REG [facility].#: [id number] Admission: 03/27/18 Date of : 74 Discharge: Report #: [id number] Path Case #: [id number] [facility] Accession Number: [id number] . 01 Material submitted: . BIOPSY OF ANTRUM R/O H. PYLORI . 01 Clinical history: . Pre-OP DX: Dysphagia Post-OP DX: Dysphagia, gastritis, hiatal hernia, mild esophagitis . 02 Diagnosis: Gastric mucosa, antrum, endoscopic biopsy: - Mild chronic inflammation. - Negative for intestinal metaplasia or atrophy. - Negative for Helicobacter pylori (properly controlled immunohistochemical stain performed). (IUV:transfer controller; 03/28/2018) MBR/03/28/2018 . 02 Electronically signed: . Anne Lynn MD, Pathologist NPI- [id number] . 01 Gross description: . Received in formalin labeled "Bonnie Burden BX of antrum, rule out H. pylori," are 2 segments of norris soft tissue measuring 0.7 x 0.3 x 0.1 cm in aggregate dimensions and ranging from 0.2 to 0.5 cm in maximum dimension. The specimen is submitted entirely in cassette A1. (TSD; 03/27/2018) TOB/TOB . 02 Pathologist provided ICD-10: K29.50 . 02 CPT . 220782, E61934 Specimen Comment: A courtesy copy of this report has been sent to Specimen Comment: [phone]. Specimen Comment: Report sent to Performed at: [address] [id number] MD Mitchell Liu MD Phone: [phone] Performed at: [address] [id number] [address] [address] PATHOLOGY RPT PROCEDURE Name: BONNIE BURDEN Room #: REG [facility].#: [id number] Admission: 03/27/18 Date of : 74 Discharge: Report #: [id number] Path Case #: [id number] MD Anne Lynn MD Phone: [phone]
== END | disposition home or self-care (01) ==
LOC: GI 12:47
DX: K29.50 Unspecified chronic gastritis without bleeding (principal); K20.8 Other esophagitis; K44.9 Diaphragmatic hernia without obstruction or gangrene; E78.5 Hyperlipidemia, unspecified; E78.00 Pure hypercholesterolemia, unspecified; E66.09 Other obesity due to excess calories; Z98.890 Other specified postprocedural states; Z90.49 Acquired absence of other specified parts of digestive tract; Z85.850 Personal history of malignant neoplasm of thyroid; Z88.0 Allergy status to penicillin; Z91.040 Latex allergy status; Z98.84 Bariatric surgery status; Z79.899 Other long term (current) drug therapy; Z68.33 Body mass index [BMI] 33.0-33.9, adult
CPT/HCPCS: 62110; 62900

== ENCOUNTER 2018-03-30 16:13 | Emergency (ER) | payer OTHER ==
[~2018-03-30] VITALS: Ht 188 cm; Wt 117.5 kg
[2018-03-30 18:23] VITALS: BP 110/71
== END 2018-03-30 18:18 | disposition home or self-care (01) ==
LOC: ER 16:13
DX: H61.23 Impacted cerumen, bilateral (principal); G47.30 Sleep apnea, unspecified; E78.00 Pure hypercholesterolemia, unspecified; Z91.040 Latex allergy status; Z88.0 Allergy status to penicillin; Z90.89 Acquired absence of other organs; Z85.850 Personal history of malignant neoplasm of thyroid; Z90.49 Acquired absence of other specified parts of digestive tract

== ENCOUNTER 2018-04-02 22:27 | Emergency (ER) | payer OTHER ==
[~2018-04-02] VITALS: Ht 188 cm; Wt 113.8 kg
[2018-04-03 03:37] VITALS: BP 110/71
== END 2018-04-03 03:39 | disposition home or self-care (01) ==
LOC: ER 22:27
DX: H61.22 Impacted cerumen, left ear (principal); H54.7 Unspecified visual loss; G47.30 Sleep apnea, unspecified; E78.00 Pure hypercholesterolemia, unspecified; Z85.850 Personal history of malignant neoplasm of thyroid; Z90.89 Acquired absence of other organs; Z90.49 Acquired absence of other specified parts of digestive tract; Z91.040 Latex allergy status; Z88.0 Allergy status to penicillin

== ENCOUNTER 2019-01-31 13:35 | Emergency (ER) | payer OTHER ==
[~2019-01-31] VITALS: Ht 188 cm; Wt 127.0 kg
[2019-01-31 13:36] VITALS: BP 128/77
[2019-01-31] MEDS ORDERED: CORTISPORIN OTI10 M2 OTIC (14:09)
== END 2019-01-31 14:46 | disposition home or self-care (01) ==
LOC: ER 13:35
DX: H60.91 Unspecified otitis externa, right ear (principal); E78.00 Pure hypercholesterolemia, unspecified; G47.30 Sleep apnea, unspecified; Z90.49 Acquired absence of other specified parts of digestive tract; Z85.850 Personal history of malignant neoplasm of thyroid; Z90.89 Acquired absence of other organs; Z98.84 Bariatric surgery status; Z88.0 Allergy status to penicillin; Z91.040 Latex allergy status

== ENCOUNTER 2019-04-14 14:48 | Emergency (ER) | payer OTHER ==
[~2019-04-14] VITALS: Ht 188 cm; Wt 127.0 kg
[~2019-04-14 14:48] MED LIST changes: +CORTISPORIN OTI10 M2 OTIC
[2019-04-14 14:49] VITALS: BP 132/76
[2019-04-14] MEDS ORDERED: METHOCARBAMOL500 M2 PO (15:38)
== END 2019-04-14 17:41 | disposition home or self-care (01) ==
LOC: ER 14:48
DX: H61.21 Impacted cerumen, right ear (principal); M43.6 Torticollis; M25.512 Pain in left shoulder; E78.00 Pure hypercholesterolemia, unspecified; E66.9 Obesity, unspecified; G47.30 Sleep apnea, unspecified; Z68.36 Body mass index [BMI] 36.0-36.9, adult; Z85.850 Personal history of malignant neoplasm of thyroid; Z90.49 Acquired absence of other specified parts of digestive tract; Z91.040 Latex allergy status; Z88.0 Allergy status to penicillin

== ENCOUNTER → 2019-05-04 | Outpatient (CLI) | payer OTHER ==
[~2019-05-04] VITALS: Ht 188 cm; Wt 137.9 kg
[~2019-05-04] MED LIST changes: +METHOCARBAMOL500 M2 PO
[2019-05-04 12:56] VITALS: BP 141/83
--- NOTE | 2019-05-04 13:06 | NUR ---
Pain Clinic Assessment: 1. History of Osteoarthritis: Not Applicable History of Rheumatoid Arthritis: Not Applicable 2. Height: 6 ft. 2 in. 188.0 cm. Weight: 304.0 lb. oz. 137.894 kg. Patient's BMI: 39.0 3. Vital Signs: BP: 141/83 Pulse: 71 Resp: 16 Temp: 02 Sat: 93 ECG Mon: 4. Pain Intensity: 10 5. Fall Risk: Dizziness: N Needs help standing or walking: N Fallen in the last 3 months: N Fall risk comments: 6. Patient on Blood Thinner: None 7. History of Hypertension: Y 8. Opioid Therapy greater than 6 weeks: N Opiate Contract Signed: 9. Risk Assessment Tool Provided: LOW RISK 0/3 10. Functional Assessment Tool: 60/70 11. Recreational Drug Use: Never Drug Type: Tobacco Use: Never Smoker Tobacco Type: Amount or Packs/day: How Many Years: Alcohol Use: No Frequency: Quant:
== END | disposition home or self-care (01) ==
LOC: PAIN 06:56
DX: M54.16 Radiculopathy, lumbar region (principal); G89.29 Other chronic pain; Z98.890 Other specified postprocedural states; Z88.0 Allergy status to penicillin; Z91.040 Latex allergy status; Z79.899 Other long term (current) drug therapy; Z79.82 Long term (current) use of aspirin

== ENCOUNTER → 2019-05-23 | Outpatient (CLI) | payer OTHER | LOC: SJCVC 13:54 | DX: I45.10 Unspecified right bundle-branch block (principal); R94.31 Abnormal electrocardiogram [ECG] [EKG]; E78.5 Hyperlipidemia, unspecified; E11.9 Type 2 diabetes mellitus without complications; E66.9 Obesity, unspecified; Z79.899 Other long term (current) drug therapy ==

== ENCOUNTER → 2019-05-31 | Outpatient (CLI) | payer OTHER | LOC: ULTRA 09:04 | DX: C73 Malignant neoplasm of thyroid gland (principal) ==

== ENCOUNTER → 2019-07-27 | Outpatient (CLI) | payer OTHER ==
--- NOTE | 2019-08-02 16:07 | PATH ---
[facility] [address] [place] [address] PATHOLOGY RPT PROCEDURE Name: BONNIE BURDEN Room #: REG Tenisha MJustine.#: [id number] Admission: 07/27/19 Date of : 74 Discharge: Report #: [id number] Path Case #: [id number] [facility] Accession Number: [id number] . 01 Material submitted: . PART A: neck - LEFT SUPRACLAVICULAR MASS, NECK. Modifiers: left PART B: lymph node - RIGHT NECK NODE BIOPSY. Modifiers: right, neck . 01 Clinical history: . History of thyroidectomy; thyroid cancer; left supraclavicular mass . 02 Diagnosis: A. Lymph node, left neck supraclavicular mass, needle core biopsy: - FINDINGS COMPATIBLE WITH A METASTATIC ADENOCARCINOMA (PLEASE SEE COMMENT). - Background lymphoid tissue showing reactive changes. . B. Lymph node, right neck, biopsy: - Reactive lymphoid tissue. - Negative for malignancy. (IUV:lisa; 07/31/2019) AZJ 07/31/2019 1310 Local . 02 Comment: Examination shows atypical glands lined by flattened cuboidal epithelium with nuclear clearing and pseudo-inclusions within the left supraclavicular mass needle core biopsy. The right neck biopsy tissue shows benign lymphoid tissue without any evidence of malignancy along with abundant skeletal muscle tissue. A properly controlled TTF-1 immunohistochemical stain is performed on blocks A1 as well as B1, and it shows focal strong nuclear reactivity present within approximately 5% of the neoplastic cells, thus favoring a metastatic papillary thyroid carcinoma. Please note, the differential diagnosis includes a metastatic adenocarcinoma of lung origin as well. The provided history of thyroidectomy (thyroid cancer) is noted. It is also pertinent to note that the sample may not be entirely route service representative; correlate clinically and follow-up as indiciated. . Portion of the specimen was sent for flow cytometric analysis and it showed no significant lymphoid immunophenotypic abnormalities detected in the limited sample available due to low cell yield. A report will be submitted as an addendum to this one. Please refer to a separate report for complete details. . Dr. Ana Lubin (board certified hematopathologist) has seen this case and concurs with my diagnosis. Findings of this case were discussed with Dr. Muñiz's at 2:48 pm of 07/31/2019. [address] [address] PATHOLOGY RPT PROCEDURE Name: BONNIE BURDEN Room #: REG Tenisha Givens#: [id number] Admission: 07/27/19 Date of : 74 Discharge: Report #: [id number] Path Case #: [id number] (IUV:lisa; 07/31/2019) . 02 Addendum: . Special studies report received from [facility], [address] [place] [address], [address], [place], [address], on case [id number], labeled with their number [id number], dated 07/28/2019. . Flow Cytometry: Hematologic Neoplasia Assessment . Clinical History Localized swelling, mass and lump, neck . Indication for Study Evaluation for hematolymphoid neoplasia . Specimen Left Neck Supraclavicular Mass . Viability 85% (7AAD exclusion) . Interpretation Left Neck Supraclavicular Mass: - No significant lymphoid immunophenotypic abnormalities detected in a limited sample due to low cell yield (see comment). . Comments However, this is a limited sample due to reduced viability therefore these findings should be interpreted with caution. Non-hematolymphoid neoplasms, Hodgkin lymphoma, some large cell lymphomas, and some T-cell lymphomas cannot be excluded based solely on flow cytometric analysis data. Correlation with available clinical, laboratory, and morphologic/immunohistochemical analysis is recommended for an accurate diagnosis. . Populations Analyzed Lymphocytes: 76% B-cells: 10%, polytypic/polyclonal sIg light chain pattern T-cells: no significant abnormalities of the limited markers tested CD4:CD8: 3.5 CD45 Negative 20% No significant reactivity with the markers tested Events/Debris: (may represent non-hematolymphoid cells, degenerated cells, debris, unlysed red blood cells, etc.) . Morphologic Evaluation A slide was reviewed for quality control assessor purposes only. . [facility] [address] [place] [address] PATHOLOGY RPT PROCEDURE Name: BONNIE BURDEN Room #: BRENDA Givens#: [id number] Admission: 07/27/19 Date of : 74 Discharge: Report #: [id number] Path Case #: [id number] Specimen Description Due to low cell count, the lab is unable to provide an accurate cell yield. A limited panel of antibodies was performed. Flow cytometry data needs to be interpreted within the context of all clinical, laboratory, and morphologic information. . Reagent(s) Used CD3, CD4, CD5, CD8, CD10, CD19, CD20, CD38, CD45, CD57, kappa, lambda . at [facility] Gisella Peres MD Pathologist . . Intended Use Flow cytometry is optimally used to immunophenotypically characterize abnormal populations when they are detected. Negative flow cytometry results do not exclude lymphoma or neoplasia. Possible false negative flow cytometry results may occur in, but are not limited to, the following: neoplastic cells in Hodgkin lymphoma are not typically adequately represented by routine clinical flow cytometry; neoplastic cells may be lost or inadequately represented due to degeneration, sample processing, sampling artifact, or patchy involvement; plasma cells are typically underrepresented by flow cytometry; immature cells/blasts may be underrepresented due to hemodilution; myeloproliferative disorders and low grade myelodysplasia may not have immunophenotypic abnormalities or increased blasts. Correlation with all available clinical, laboratory, and morphologic data is always necessary to assess for the possibility of false negative flow cytometry results and to establish a diagnosis. Each marker in this analysis was used to assess for potential antigenic abnormalities or to evaluate detected abnormalities. . Any image or images that accompany this report are route service representative images only and should not be used to render a diagnosis. . Disclaimer(s) This test was developed and its performance characteristics determined by [facility] It has not been cleared or approved by the Food and Drug Administration. . Performing Labs This test was performed at [facility]. at [address], [place], [address] - [employer]: Chan Sarmiento MD. [facility] is a business unit of [facility] a wholly-owned subsidiary of [employer]. [address] [address] PATHOLOGY RPT PROCEDURE Name: BONNIE BURDEN Room #: REG CLI [facility].#: [id number] Admission: 07/27/19 Date of : 74 Discharge: Report #: [id number] Path Case #: [id number] . For inquiries, the physician may contact Lab: [phone] . A complete copy of the report is on file. . Professional services performed by [facility]. at [address], [place] [address]. Technical services performed by [facility]. at [address], [place] [address]. . (IUV:amj 07/30/2019) . AZJ/08/01/2019 Addendum Electronically Signed by Anne Lynn MD, Pathologist . 02 Electronically signed: . Anne Lynn MD, Pathologist NPI- [id number] . 01 Gross description: . A. The specimen is received in formalin, labeled "Bonnie Burden, left neck". Received are several fragments of friable pale norris soft tissue mass with a slight amenable coagulum measuring 0.5 x 0.4 x 0.1 cm in aggregate dimensions. The specimen is filtered and entirely submitted in cassette A1. A portion of the specimen is received in RPMI solution and is forwarded on for flow cytometry studies. . B. The specimen is received in formalin, labeled "Bonnie Burden, right neck". Received are multiple fragments of friable pale norris soft tissue measuring 0.8 x 0.5 x 0.1 cm in aggregate dimensions. The specimen is filtered and entirely submitted in cassette B1. (CAA; 07/27/2019) QAC/QAC 07/31/2019 1247 Local . 02 Microscopic: . . . 02 Pathologist provided ICD-10: C77.1, R59.9 . 02 CPT . 558652, O42450 Specimen Comment: A courtesy copy of this report has been sent to [phone] Specimen Comment: Report sent to Performed at: [address], [place] [id number] MD Mitchell Liu MD Phone: [phone] [place] [address] PATHOLOGY RPT PROCEDURE Name: BONNIE BURDEN Room #: REG BJ Givens#: [id number] Admission: 07/27/19 Date of : 74 Discharge: Report #: [id number] Path Case #: [id number] Performed at: [address] [id number] MD Anne Lynn MD Phone: [phone]
== END ==
LOC: ULTRA 08:28
DX: E04.1 Nontoxic single thyroid nodule (principal); C73 Malignant neoplasm of thyroid gland; E89.0 Postprocedural hypothyroidism; Z79.899 Other long term (current) drug therapy; Z98.890 Other specified postprocedural states; Z88.0 Allergy status to penicillin; Z90.49 Acquired absence of other specified parts of digestive tract; Z87.440 Personal history of urinary (tract) infections

== ENCOUNTER → 2019-08-15 | Outpatient (CLI) | payer OTHER | LOC: PET 08-14 10:35 | DX: C77.0 Secondary and unspecified malignant neoplasm of lymph nodes of head, face and neck (principal) ==

== ENCOUNTER 2019-09-22 03:18 | Emergency (ER) | payer OTHER ==
[~2019-09-22] VITALS: Ht 188 cm; Wt 127.0 kg
[2019-09-22] MEDS ORDERED: ERYTHROMYCIN E3.5 G3 OPHTHALMIC (03:49)
[2019-09-22] MEDS ORDERED: NORCO 5-325 TA1 EAC1 PO (03:50)
[2019-09-22 04:22] VITALS: BP 137/81
== END 2019-09-22 04:30 | disposition home or self-care (01) ==
LOC: ER 03:18
DX: S05.01XA Injury of conjunctiva and corneal abrasion without foreign body, right eye, initial encounter (principal); E78.00 Pure hypercholesterolemia, unspecified; Z90.49 Acquired absence of other specified parts of digestive tract; Z90.89 Acquired absence of other organs; Z85.850 Personal history of malignant neoplasm of thyroid; Z79.899 Other long term (current) drug therapy; Z79.82 Long term (current) use of aspirin; Z91.040 Latex allergy status; Z88.0 Allergy status to penicillin; X58.XXXA Exposure to other specified factors, initial encounter; Y93.89 Activity, other specified; Y92.89 Other specified places as the place of occurrence of the external cause; Y99.8 Other external cause status

== ENCOUNTER 2019-11-20 16:56 | Emergency (ER) | payer OTHER ==
[~2019-11-20] VITALS: Ht 188 cm; Wt 131.5 kg
[~2019-11-20 16:56] MED LIST changes: +ERYTHROMYCIN E3.5 G3 OPHTHALMIC; +NORCO 5-325 TA1 EAC1 PO
[2019-11-20] MEDS ORDERED: LEVOXYL137 MCG PO (17:09)
[2019-11-20 18:36] LABS: CALCIUM 8.4 mg/dL (8.5-10.1); POTASSIUM 4.1 mmol/L (3.5-5.1)
[2019-11-20 18:42] LABS: ALBUMIN 3.5 g/dL (3.4-5.0); TOTAL BILIRUBIN 0.4 mg/dL (0.2-1.0)
[2019-11-20 20:08] VITALS: BP 110/68
== END 2019-11-20 20:10 | disposition home or self-care (01) ==
LOC: ER 16:56
PROVIDERS: Nurse Practitioner
DX: G89.18 Other acute postprocedural pain (principal); M54.2 Cervicalgia; E78.00 Pure hypercholesterolemia, unspecified; Z90.49 Acquired absence of other specified parts of digestive tract; Z90.89 Acquired absence of other organs; Z79.899 Other long term (current) drug therapy; Z88.0 Allergy status to penicillin; Z91.040 Latex allergy status